=== PATIENT | male | born 1940 | race Hispanic/Latino ===

== ENCOUNTER 2017-04-07 13:27 | Emergency (ER) | payer OTHER, MEDICARE ==
[2017-04-07 14:12] LABS: BASOPHILS % (AUTO) 0.7 % (0.0-5.0); EOSINOPHILS % (AUTO) 1.2 % (0.0-8.0); HEMATOCRIT 41.3 % (42-54); LYMPHOCYTES % (AUTO) 20.1 % (21.0-51.0); MEAN CORPUSCULAR HEMOGLOBIN 30.5 pg (27.0-33.0); MEAN CORPUSCULAR HGB CONC 33.8 g/dL (32.0-36.0); MEAN CORPUSCULAR VOLUME 90.2 fL (79-99); MONOCYTES % (AUTO) 8.7 % (3.0-13.0); NEUTROPHILS % (AUTO) 69.3 % (40.0-77.0); PLATELET COUNT (AUTO) 205 K/uL (130-400); RED BLOOD CELL COUNT(AUTO) 4.58 MIL/uL (4.50-6.20); RED CELL DISTRIBUTION WIDTH 13.8 % (11.0-15.5); WHITE BLOOD COUNT (AUTO) 10.2 K/uL (4.8-10.8)
[2017-04-07 14:23] LABS: CREATININE 0.5 mg/dL (0.5-1.5); POTASSIUM 4.2 mmol/L (3.5-5.1)
[2017-04-07 14:29] LABS: ALBUMIN 3.3 g/dL (3.5-5.0); TOTAL PROTEIN, SERUM 7.2 g/dL (6.0-8.3)
[2017-04-07] MEDS ORDERED: ONDANSETRON HCL 4 MG/2 ML VIAL ONE (14:44)
[2017-04-07] MEDS ORDERED: MORPHINE SULFATE 4 MG/1ML SYG ONE (14:45)
[2017-04-07 14:53] LABS: APPEARANCE,URINE Clear (CLEAR); BILIRUBIN,URINE Negative (NEGATIVE); COLOR,URINE Yellow (YELLOW); GLUCOSE, URINE (UA) Negative (NEGATIVE); KETONES,URINE Negative (NEGATIVE); LEUKOCYTE ESTERASE ,URINE Negative (NEGATIVE); NITRATE,URINE Negative (NEGATIVE); OCCULT BLOOD,URINE Negative (NEGATIVE); PH,URINE 5.5 (5.0-8.0); PROTEIN,URINE Negative (NEGATIVE)
[2017-04-07] MEDS ORDERED: METHYLPREDNISOLONE SOD SUCC 125MG/2ML VIAL ONE (14:59)
== END 2017-04-07 16:18 | disposition home or self-care (01) ==
LOC: EDH 13:27
DX: M19.042 Primary osteoarthritis, left hand (principal); M19.041 Primary osteoarthritis, right hand; I25.10 Atherosclerotic heart disease of native coronary artery without angina pectoris; E11.9 Type 2 diabetes mellitus without complications; I10 Essential (primary) hypertension
CPT/HCPCS: 36415; 80053; 81003; 85025; 96374; 96375; 99284; J2270; J2405; J2930

== ENCOUNTER 2017-06-09 23:28 | Emergency (ER) | payer OTHER, MEDICARE ==
[2017-06-09] MEDS ORDERED: HYDROCODONE/ACETAMINOPHEN 10/325 MG TAB ONE (23:58)
[2017-06-10 00:24] LABS: BASOPHILS % (AUTO) 0.4 % (0.0-5.0); EOSINOPHILS % (AUTO) 0.4 % (0.0-8.0); HEMATOCRIT 39.9 % (42-54); LYMPHOCYTES % (AUTO) 23.3 % (21.0-51.0); MEAN CORPUSCULAR HEMOGLOBIN 30.3 pg (27.0-33.0); MEAN CORPUSCULAR HGB CONC 33.5 g/dL (32.0-36.0); MEAN CORPUSCULAR VOLUME 90.5 fL (79-99); MONOCYTES % (AUTO) 8.7 % (3.0-13.0); NEUTROPHILS % (AUTO) 67.2 % (40.0-77.0); PLATELET COUNT (AUTO) 205 K/uL (130-400); RED BLOOD CELL COUNT(AUTO) 4.41 MIL/uL (4.50-6.20); RED CELL DISTRIBUTION WIDTH 14.4 % (11.0-15.5); WHITE BLOOD COUNT (AUTO) 12.6 K/uL (4.8-10.8)
[2017-06-10 00:40] LABS: INR 0.92 (0.85-1.15); PARTIAL THROMBOPLASTIN TIME 23.3 SEC (26.3-35.5); PROTHROMBIN TIME 9.7 SEC (9.6-11.6)
[2017-06-10 00:44] LABS: B-TYPE NATRIURETIC PEPTIDE 82 pg/mL (0-100)
[2017-06-10 00:45] LABS: CREATININE 0.6 mg/dL (0.5-1.5); POTASSIUM 3.8 mmol/L (3.5-5.1)
[2017-06-10 01:14] LABS: ALBUMIN 3.1 g/dL (3.5-5.0); BILIRUBIN,TOTAL 0.7 mg/dL (0.2-1.0); TOTAL PROTEIN, SERUM 6.5 g/dL (6.0-8.3)
== END 2017-06-10 02:34 | disposition home or self-care (01) ==
LOC: EDH 23:28
DX: S20.212A Contusion of left front wall of thorax, initial encounter (principal); R42 Dizziness and giddiness; I25.10 Atherosclerotic heart disease of native coronary artery without angina pectoris; E11.9 Type 2 diabetes mellitus without complications; M19.90 Unspecified osteoarthritis, unspecified site; I10 Essential (primary) hypertension; Z98.890 Other specified postprocedural states; Z87.891 Personal history of nicotine dependence; W18.39XA Other fall on same level, initial encounter; Y93.01 Activity, walking, marching and hiking; Y92.89 Other specified places as the place of occurrence of the external cause; Y99.8 Other external cause status
CPT/HCPCS: 36415; 71045; 71100; 80053; 82550; 82553; 83874; 83880; 84484; 85025; 85610; 85730; 93005; 94761

== ENCOUNTER 2018-01-23 10:25 | Emergency (ER) | payer OTHER, MEDICARE | END 2018-01-23 13:18 | disposition home or self-care (01) | LOC: EDH 10:25 | DX: S63.592A Other specified sprain of left wrist, initial encounter (principal); S50.312A Abrasion of left elbow, initial encounter; M25.552 Pain in left hip; R42 Dizziness and giddiness; M19.90 Unspecified osteoarthritis, unspecified site; I25.10 Atherosclerotic heart disease of native coronary artery without angina pectoris; E11.9 Type 2 diabetes mellitus without complications; I10 Essential (primary) hypertension; Z98.890 Other specified postprocedural states; W01.0XXA Fall on same level from slipping, tripping and stumbling without subsequent striking against object, initial encounter; Y93.89 Activity, other specified; Y92.098 Other place in other non-institutional residence as the place of occurrence of the external cause; Y99.8 Other external cause status | CPT/HCPCS: 73030; 73080; 73110 ==

== ENCOUNTER 2019-12-17 19:39 | Observation (INO) | payer MEDICARE ==
[~2019-12-17] VITALS: Ht 165.1 cm; Wt 84.1 kg
[~2019-12-17 19:39] MED LIST: ATOR20TA65 PO; CARV12.511 PO; EMPA25TA PO; INDO50CA98 PO; LEVE500T98 PO; MECL-183 PO; SERT50TA12 PO
[2019-12-17 20:12] LABS: BASOPHILS % (AUTO) 1.8 % (0.0-5.0); HEMATOCRIT 43.2 % (42-54); LYMPHOCYTES % (AUTO) 35.1 % (21.0-51.0); MEAN CORPUSCULAR HEMOGLOBIN 30.4 pg (27.0-33.0); MEAN CORPUSCULAR HGB CONC 33.3 g/dL (32.0-36.0); MEAN CORPUSCULAR VOLUME 91.3 fL (79-99); MONOCYTES % (AUTO) 11.1 % (3.0-13.0); NEUTROPHILS % (AUTO) 47.8 % (40.0-77.0); PLATELET COUNT (AUTO) 163 K/uL (130-400); RED BLOOD CELL COUNT(AUTO) 4.73 MIL/uL (4.50-6.20); RED CELL DISTRIBUTION WIDTH 14.1 % (11.0-15.5)
[2019-12-17 20:21] LABS: CREATININE 0.7 mg/dL (0.5-1.5); POTASSIUM 4.1 mmol/L (3.5-5.1)
[2019-12-17 20:25] LABS: INR 0.99 (0.85-1.15); PARTIAL THROMBOPLASTIN TIME 27.3 SEC (26.3-35.5); PROTHROMBIN TIME 10.7 SEC (9.6-11.6)
[2019-12-17 20:34] LABS: ALBUMIN 3.2 g/dL (3.5-5.0); BILIRUBIN,TOTAL 1.3 mg/dL (0.2-1.0); TOTAL PROTEIN, SERUM 6.6 g/dL (6.0-8.3)
[2019-12-17 20:39] LABS: APPEARANCE,URINE Clear (CLEAR); BILIRUBIN,URINE Negative (NEGATIVE); COLOR,URINE Yellow (YELLOW); GLUCOSE, URINE (UA) >=1000 mg/dL (NEGATIVE); KETONES,URINE Negative (NEGATIVE); LEUKOCYTE ESTERASE ,URINE Negative (NEGATIVE); NITRATE,URINE Negative (NEGATIVE); OCCULT BLOOD,URINE Negative (NEGATIVE); PROTEIN,URINE Negative (NEGATIVE)
[2019-12-17 21:08] LABS: BACTERIA,URINE Rare /HPF (None Seen); RBC,URINE None Seen /HPF (0-1); SQUAMOUS EPITHELIAL CELL,UR Rare /HPF (0-2); WBC,URINE None Seen /HPF (0-1)
[2019-12-17] MEDS ORDERED: ACETAMINOPHEN EXTRA STRENGTH 500 MG TABLET ONE (21:34)
[2019-12-17] MEDS ORDERED: NITROGLYCERIN 1GM/1 INCH PACKET TD ONE (22:57)
[2019-12-17] MEDS ORDERED: MAG HYDROX/AL HYDROX/SIMETH ES 30 ML SUSP UDCUP PO PRN (23:00)
[2019-12-17] MEDS ORDERED: LACTULOSE 20 GM/30 ML UDCUP PO PRN (23:00)
[2019-12-17] MEDS ORDERED: DiphenhydrAMINE HCL 50 MG/ML VIAL IV PRN (23:00)
[2019-12-17] MEDS ORDERED: NITROGLYCERIN 1GM/1 INCH PACKET TD SCH (23:00)
[2019-12-17] MEDS ORDERED: GUAIFENESIN-DM 200/20 MG 10 ML PO PRN (23:00)
[2019-12-17] MEDS ORDERED: ONDANSETRON HCL 4 MG/2 ML VIAL IV PRN (23:00)
[2019-12-17] MEDS ORDERED: HYDRALAZINE HCL 20 MG/ML VIAL IV PRN (23:00)
[2019-12-17] MEDS ORDERED: MORPHINE SULFATE 4 MG/1ML SYG IV PRN (23:00)
[2019-12-17] MEDS ORDERED: DIPHENHYDRAMINE HCL 25 MG CAPSULE PO PRN (23:00)
[2019-12-17] MEDS ORDERED: NITROGLYCERIN 0.4 MG SL TAB SL PRN (23:00)
[2019-12-17] MEDS ORDERED: LIDOCAINE HCL 2% VISCOUS 30 ML, MAG HYDROX/AL HYDROX/SIMETH 30 ML, BELLADONNA-PHENOBARB... PO PRN ×3 (23:00)
[2019-12-17] MEDS ORDERED: MORPHINE SULFATE 2 MG/ML 1ML SYG IV PRN (23:00)
[2019-12-17] MEDS ORDERED: MAG HYDROX/AL HYDROX/SIMETH 30 ML, LIDOCAINE HCL 2% VISCOUS 30 ML, DIPHENHYDRAMINE HCL ... PO PRN ×3 (23:00)
[2019-12-17] MEDS ORDERED: ACETAMINOPHEN 325 MG TAB PO PRN ×2 (23:00)
[2019-12-17] MEDS ORDERED: ZOLPIDEM TARTRATE 5 MG TAB PO PRN (23:00)
[2019-12-18 00:02] LABS: CREATINE KINASE, TOTAL 34 U/L (21-232); MYOGLOBIN 23 ng/mL (10-92); TROPONIN I < 0.04 ng/mL (0.00-0.06)
[2019-12-18 03:15] VITALS: BP 188/75
[2019-12-18] MEDS ORDERED: GABA-529 PO (04:04)
[2019-12-18] MEDS ORDERED: LOSA50TA64 PO (04:04)
[2019-12-18] MEDS ORDERED: DONE10TA43 PO (04:04)
[2019-12-18] MEDS ORDERED: TAMS-1 PO (04:04)
[2019-12-18] MEDS ORDERED: MELO-106 PO (04:04)
[2019-12-18] MEDS ORDERED: HYDRALAZINE HCL 20 MG/ML VIAL IV PRN (04:15)
[2019-12-18] MEDS: INSULIN LISPRO 100 UNIT/ML 3ML SQ SCH ×4 (06:42→20:51)
[2019-12-18 07:03] LABS: ALBUMIN 3.2 g/dL (3.5-5.0); BILIRUBIN,TOTAL 1.8 mg/dL (0.2-1.0); CREATININE 0.6 mg/dL (0.5-1.5); MAGNESIUM 1.9 mg/dL (1.80-2.40); PHOSPHORUS 3.4 mg/dL (2.5-4.9); TOTAL PROTEIN, SERUM 6.6 g/dL (6.0-8.3)
[2019-12-18 07:04] LABS: CREATINE KINASE, TOTAL 31 U/L (21-232); TROPONIN I < 0.04 ng/mL (0.00-0.06)
[2019-12-18 07:05] LABS: MYOGLOBIN 26 ng/mL (10-92)
[2019-12-18 08:07] VITALS: BP 187/89
[2019-12-18] MEDS: MELOXICAM 7.5 MG TABLET PO SCH (08:08)
[2019-12-18] MEDS: SERTRALINE HCL 50 MG TABLET PO SCH (08:08)
[2019-12-18] MEDS: LOSARTAN 50 MG TABLET PO SCH (08:08)
[2019-12-18] MEDS: GABAPENTIN 100 MG CAPSULE PO SCH ×2 (08:08→19:47)
[2019-12-18] MEDS: LEVETIRACETAM 500 MG TABLET PO SCH (08:08)
[2019-12-18] MEDS: FAMOTIDINE/PF 20 MG/2 ML VIAL IV SCH ×2 (08:08→19:47)
[2019-12-18] MEDS: TAMSULOSIN HCL 0.4 MG CAP.ER.24H PO SCH (08:08)
[2019-12-18] MEDS: ENOXAPARIN SODIUM 40 MG/0.4 ML SYRINGE SQ SCH (08:09)
[2019-12-18] MEDS ORDERED: ASPIRIN 325 MG TABLET PO SCH (09:00)
[2019-12-18] MEDS: **HM** JARDIANCE 25MG PO SCH (09:00)
[2019-12-18] MEDS ORDERED: HEPARIN SODIUM 5000UNIT/ML 1ML VIAL SQ SCH (09:00)
[2019-12-18] MEDS ORDERED: CARVEDILOL 12.5 MG TABLET PO SCH (09:00)
[2019-12-18 11:17] VITALS: BP 144/74
[2019-12-18] MEDS: METHYLPREDNISOLONE SOD SUCC 40MG/ML 1ML IVP SCH ×2 (13:04→18:17)
[2019-12-18] MEDS ORDERED: IOHEXOL-350 75 ML VIAL IV ONE (13:21)
--- NOTE | 2019-12-18 13:53 | NUR ---
PT WENT FOR CT
[2019-12-18] MEDS: IPRATROPIUM/ALBUTEROL SULFATE 3 ML SOLUTION IH SCH ×3 (14:17→22:14)
[2019-12-18 16:06] LABS: CREATINE KINASE, TOTAL 33 U/L (21-232); MYOGLOBIN 24 ng/mL (10-92); TROPONIN I < 0.04 ng/mL (0.00-0.06)
[2019-12-18 16:12] VITALS: BP 156/79
[2019-12-18 20:00] VITALS: BP 181/86
--- NOTE | 2019-12-18 20:00 | NUR ---
FAMILY UPDATE SPOKE TO PATIENTS DAUGHTER REGARDING PATIENTS CONDITION, PENDING PROCEDURES , AND PLAN OF CARE, DAUGHTER VERBALIZES UNDERSTANDING VIA TEACH BACK, PATIENT RESTING OX1, TEACH PATIENT PLAN OF CARE AND EXPECTED OUTCOME, PATIENT FORGETFUL AT TIMES
[2019-12-18] MEDS ORDERED: ATORVASTATIN CALCIUM 20 MG TABLET PO SCH (21:00)
[2019-12-18] MEDS ORDERED: DONEPEZIL HCL 5 MG TAB PO SCH (21:00)
--- NOTE | 2019-12-18 21:31 | NUR ---
b/p b/p 182/84, no sob, no c/o pain, hydralazine 10 mg ivp given slowly
--- NOTE | 2019-12-18 22:30 | NUR ---
med effect b/p 148/80, no sob , no c/o pain at this time
[2019-12-18 23:33] LABS: BASOPHILS % (AUTO) 1.1 % (0.0-5.0); EOSINOPHILS % (AUTO) 5.5 % (0.0-8.0); HEMATOCRIT 46.4 % (42-54); LYMPHOCYTES % (AUTO) 16.4 % (21.0-51.0); MEAN CORPUSCULAR HEMOGLOBIN 30.6 pg (27.0-33.0); MEAN CORPUSCULAR HGB CONC 34.1 g/dL (32.0-36.0); MEAN CORPUSCULAR VOLUME 89.7 fL (79-99); NEUTROPHILS % (AUTO) 75.6 % (40.0-77.0); PLATELET COUNT (AUTO) 172 K/uL (130-400); RED BLOOD CELL COUNT(AUTO) 5.17 MIL/uL (4.50-6.20); RED CELL DISTRIBUTION WIDTH 13.7 % (11.0-15.5); WHITE BLOOD COUNT (AUTO) 5.3 K/uL (4.8-10.8)
[2019-12-19] VITALS: BP 170/76
[2019-12-19] MEDS: METHYLPREDNISOLONE SOD SUCC 40MG/ML 1ML IVP SCH ×3 (00:36→12:30)
[2019-12-19] MEDS: IPRATROPIUM/ALBUTEROL SULFATE 3 ML SOLUTION IH SCH ×3 (01:34→10:17)
[2019-12-19 03:45] VITALS: BP 142/80
[2019-12-19 04:40] LABS: BASOPHILS % (AUTO) 0.7 % (0.0-5.0); EOSINOPHILS % (AUTO) 0.5 % (0.0-8.0); HEMATOCRIT 45.3 % (42-54); LYMPHOCYTES % (AUTO) 14.8 % (21.0-51.0); MEAN CORPUSCULAR HGB CONC 33.6 g/dL (32.0-36.0); MEAN CORPUSCULAR VOLUME 89.5 fL (79-99); MONOCYTES % (AUTO) 2.2 % (3.0-13.0); NEUTROPHILS % (AUTO) 81.6 % (40.0-77.0); PLATELET COUNT (AUTO) 178 K/uL (130-400); RED BLOOD CELL COUNT(AUTO) 5.06 MIL/uL (4.50-6.20); RED CELL DISTRIBUTION WIDTH 13.9 % (11.0-15.5); WHITE BLOOD COUNT (AUTO) 5.8 K/uL (4.8-10.8)
[2019-12-19 04:50] LABS: ALBUMIN 3.3 g/dL (3.5-5.0); BILIRUBIN,TOTAL 1.2 mg/dL (0.2-1.0); CREATININE 0.6 mg/dL (0.5-1.5); PHOSPHORUS 3.6 mg/dL (2.5-4.9); POTASSIUM 3.6 mmol/L (3.5-5.1)
[2019-12-19] MEDS ORDERED: KETOROLAC TROMETHAMINE 15MG/ML ONE (05:28)
[2019-12-19] MEDS ORDERED: KETOROLAC TROMETHAMINE 15MG/ML IV SCH (05:30)
[2019-12-19] MEDS: INSULIN LISPRO 100 UNIT/ML 3ML SQ SCH ×2 (06:03→11:30)
--- NOTE | 2019-12-19 08:00 | NUR ---
ASSESSMENT PT A/AOX 3 NO CP, NO SOB, VS STABLE HR 55 WILL CONTINUE TO MONITOR
[2019-12-19] MEDS: FAMOTIDINE/PF 20 MG/2 ML VIAL IV SCH (08:26)
[2019-12-19] MEDS: LEVETIRACETAM 500 MG TABLET PO SCH (08:27)
[2019-12-19] MEDS: GABAPENTIN 100 MG CAPSULE PO SCH (08:27)
[2019-12-19] MEDS: SERTRALINE HCL 50 MG TABLET PO SCH (08:27)
[2019-12-19] MEDS: TAMSULOSIN HCL 0.4 MG CAP.ER.24H PO SCH (08:27)
[2019-12-19] MEDS: LOSARTAN 50 MG TABLET PO SCH (08:27)
[2019-12-19 08:29] VITALS: BP 166/64
[2019-12-19] MEDS: ENOXAPARIN SODIUM 40 MG/0.4 ML SYRINGE SQ SCH (08:30)
[2019-12-19] MEDS: **HM** JARDIANCE 25MG PO SCH (08:30)
[2019-12-19] MEDS: MELOXICAM 7.5 MG TABLET PO SCH (08:30)
[2019-12-19] MEDS ORDERED: CARVEDILOL 6.25 MG TABLET PO SCH (09:00)
[2019-12-19] MEDS ORDERED: LOSA100T58 PO (10:10)
--- NOTE | 2019-12-19 10:15 | NUR ---
DR. LEON PER DR. LEON PT CAN GO HOME AND F/U WITH DR. ATWOOD IN [address] INCREASED LOSARTAN 100 MG AND THIS SENT TO RX. PER DR. LEON NO PACEMAKER NEEDED AT THIS TIME AND HE ALSO CA 2-D ECHO.
--- NOTE | 2019-12-19 11:01 | NUR ---
D/C PT WILL BE LEAVING VIA WHEELCHAIR IN PVT CAR. D/C INSTRUCTIONS GIVEN TO DAUGHTER MUMTAZ, PT IS AAOX 3 VS STABLE NO CP OR SOB AT THIS TIME.
== END 2019-12-19 12:48 | disposition home or self-care (01) ==
LOC: EDH 19:39 → EDHIP 22:56 → INTOOBSV 22:56 → 3AH 12-18 02:49
PROVIDERS: ADMIT Internal Medicine; ATTEND Internal Medicine
DX: R07.89 Other chest pain (principal); J44.1 Chronic obstructive pulmonary disease with (acute) exacerbation; R47.01 Aphasia; I10 Essential (primary) hypertension; E11.9 Type 2 diabetes mellitus without complications; M19.011 Primary osteoarthritis, right shoulder; F32.9 Major depressive disorder, single episode, unspecified; F41.9 Anxiety disorder, unspecified; G47.33 Obstructive sleep apnea (adult) (pediatric); I27.20 Pulmonary hypertension, unspecified; R00.1 Bradycardia, unspecified; E78.5 Hyperlipidemia, unspecified; E66.9 Obesity, unspecified; Z87.891 Personal history of nicotine dependence; Z95.0 Presence of cardiac pacemaker; Z86.73 Personal history of transient ischemic attack (TIA), and cerebral infarction without residual deficits; Z68.30 Body mass index [BMI] 30.0-30.9, adult
CPT/HCPCS: 36415 ×3; 71045; 71275; 73030; 80053 ×3; 80061; 81001; 82550 ×4; 82948 ×5; 83690; 83735 ×2; 83874 ×3; 83880; 84100 ×2; 84484 ×4; 85025 ×3; 85610; 85730; 93005 ×4; 94640 ×6; 94664; 96372 ×2; 96374; 96375; 96376 ×2; 99285; G0378 ×3; J0360; J1650 ×2; J1885; J2920 ×4; J3490 ×3; Q9967

== ENCOUNTER 2020-07-16 14:21 | Emergency (ER) | payer MEDICARE ==
[~2020-07-16 14:21] MED LIST changes: +DONE10TA43 PO; +GABA-529 PO; +LOSA100T58 PO; -MECL-183 PO; +MECL-226 PO; +MELO-106 PO; +SERT-439 PO; -SERT50TA12 PO; +TAMS-1 PO
[2020-07-16 15:29] LABS: APPEARANCE,URINE Clear (CLEAR); BILIRUBIN,URINE Negative (NEGATIVE); COLOR,URINE Yellow (YELLOW); GLUCOSE, URINE (UA) Negative (NEGATIVE); KETONES,URINE Negative (NEGATIVE); LEUKOCYTE ESTERASE ,URINE Negative (NEGATIVE); NITRATE,URINE Negative (NEGATIVE); OCCULT BLOOD,URINE Negative (NEGATIVE); PROTEIN,URINE POS 1+ mg/dL (NEGATIVE)
[2020-07-16 15:36] LABS: BASOPHILS % (AUTO) 1.9 % (0.0-5.0); EOSINOPHILS % (AUTO) 1.9 % (0.0-8.0); LYMPHOCYTES % (AUTO) 27.5 % (21.0-51.0); MEAN CORPUSCULAR HEMOGLOBIN 28.2 pg (27.0-33.0); MEAN CORPUSCULAR HGB CONC 32.3 g/dL (32.0-36.0); MEAN CORPUSCULAR VOLUME 87.5 fL (79-99); MONOCYTES % (AUTO) 8.3 % (3.0-13.0); NEUTROPHILS % (AUTO) 60.2 % (40.0-77.0); PLATELET COUNT (AUTO) 190 K/uL (130-400); RED BLOOD CELL COUNT(AUTO) 4.57 MIL/uL (4.50-6.20); RED CELL DISTRIBUTION WIDTH 13.8 % (11.0-15.5); WHITE BLOOD COUNT (AUTO) 6.3 K/uL (4.8-10.8)
[2020-07-16 15:39] LABS: BACTERIA,URINE Rare /HPF (None Seen); MUCUS,URINE Few LPF (None Seen); SQUAMOUS EPITHELIAL CELL,UR 0-2 /HPF (0-2); WBC,URINE 0-1 /HPF (0-1)
[2020-07-16 15:54] LABS: CREATININE 0.6 mg/dL (0.5-1.5); POTASSIUM 3.7 mmol/L (3.5-5.1)
[2020-07-16 15:56] LABS: INR 1.05 (0.85-1.15); PROTHROMBIN TIME 11.4 SEC (9.6-11.6)
[2020-07-16 15:57] LABS: ABG BASE EXCESS 1.1 mmol/L (-2.0-3.0); ABG HCO3 25.8 mmol/L (21.0-28.0); ABG OXYGEN SATURATION 96.5 % (95.0-99.0); ABG PCO2 41 mmHg (35-48)
[2020-07-16 15:57] LABS: PARTIAL THROMBOPLASTIN TIME 27.4 SEC (26.3-35.5)
[2020-07-16 15:58] LABS: ALBUMIN 3.6 g/dL (3.5-5.0); BILIRUBIN,TOTAL 1.7 mg/dL (0.2-1.0); TOTAL PROTEIN, SERUM 7.8 g/dL (6.0-8.3)
[2020-07-16 16:07] LABS: B-TYPE NATRIURETIC PEPTIDE 218 pg/mL (0-100)
[2020-07-16] MEDS ORDERED: NIFEDIPINE 10 MG CAP ONE (16:09)
[2020-07-16] MEDS ORDERED: CEFTRIAXONE 1G VIAL ONE (16:09)
[2020-07-16] MEDS ORDERED: 0.9%NACL 50ML 50 ML IV ONE (16:10)
[2020-07-16] MEDS ORDERED: ACETAMINOPHEN 500 MG TABLET ONE (17:21)
== END 2020-07-16 20:14 | disposition home or self-care (01) ==
LOC: EDH 14:21
DX: J18.1 Lobar pneumonia, unspecified organism (principal); R03.0 Elevated blood-pressure reading, without diagnosis of hypertension; M25.50 Pain in unspecified joint; Z20.822 Contact with and (suspected) exposure to COVID-19; M19.90 Unspecified osteoarthritis, unspecified site; I25.10 Atherosclerotic heart disease of native coronary artery without angina pectoris; E11.9 Type 2 diabetes mellitus without complications; I10 Essential (primary) hypertension
CPT/HCPCS: 36415; 36600; 71045; 80053; 81001; 82550; 82803; 83605; 83690; 83880; 84145; 85025; 85610; 85730; 87040 ×2; 87426; 87804 ×2; 93005; 96365; 99285; J0696; U0003